=== PATIENT | female | born 1980 | race Caucasian/White ===

== ENCOUNTER → 2018-08-13 16:27 | Outpatient (CLI) | payer OTHER, SELFPAY | PROVIDERS: Family Provider Family Medicine; PCP Family Medicine; Visit Provider Physician Assistant | DX: N39.0 Urinary tract infection, site not specified (principal) | CPT/HCPCS: 87086 ==

== ENCOUNTER → 2018-09-06 10:44 | Outpatient (CLI) | payer OTHER, SELFPAY ==
--- NOTE | 2018-09-06 | DI.CT.S_ITS ---
PROCEDURE: CT ABDOMEN PELVIS WO/W CON INDICATIONS: RECURRENT UPPER URINARY TRACT INFECTIONS TECHNIQUE: Optional 5 mm thick noncontrast images acquired from the diaphragm to the symphysis pubis. After the administration of intravenous contrast, 5 mm thick images acquired from the diaphragm to the symphysis pubis after a 10-minute delay. 2 mm thick coronal and sagittal reformats were then performed of the kidneys and ureters. For radiation dose reduction, the following was used: automated exposure control, adjustment of mA and/or kV according to patient size. COMPARISON: None. FINDINGS: Image quality: Excellent. Lung bases: Bibasilar dependent atelectasis is seen posteriorly. No pleural effusion or pneumothorax Heart size is normal. Urinary system: Both kidneys are normal in size, without hydronephrosis or nephrolithiasis on pre-contrast images. No perinephric fat stranding. There is normal bilateral renal enhancement. Renal calyces appear normal in morphology when filled with contrast. Opacified portions of both ureters demonstrate normal caliber. Urinary bladder is partially distended and shows no obvious bladder wall abnormality. No calcified bladder stones. Other solid organs: Liver is normal in size and enhancement. Hepatic steatosis is seen. Gallbladder is within normal limits. Biliary system is non dilated. Pancreas enhances normally. Spleen is normal in size and enhancement. No adrenal nodules. Peritoneum and bowel: Bowel loops demonstrate normal wall thickness and caliber. No free fluid or air. Appendix is visualized and is within normal limits Nodes and vessels: No retroperitoneal or mesenteric adenopathy by size criteria. Aorta and inferior vena cava are normal in size. Abdominal wall: No ventral hernias. Pelvis: No pathologic free pelvic fluid. No inguinal hernias or adenopathy. Intrauterine device is noted in its normal central location. Bones: No suspicious bony lesions. No vertebral body compression fractures. IMPRESSION: 1. No renal stone or hydronephrosis. Normal appearing bilateral ureters. No gross abnormality is seen in partially distended urinary bladder. 2. Intrauterine device in place. 3. No bowel obstruction. No free fluid or free air. 4. Hepatic steatosis. Dictated by: Ricardo Guaman M.D. on 09/06/2018 at 11:49 Approved by: Ricardo Guaman M.D. on 09/06/2018 at 11:52
== END ==
PROVIDERS: Family Provider Family Medicine; PCP Family Medicine; Visit Provider Physician Assistant
DX: N39.0 Urinary tract infection, site not specified (principal); K76.0 Fatty (change of) liver, not elsewhere classified; Z97.5 Presence of (intrauterine) contraceptive device
CPT/HCPCS: 74178; Q9967

== ENCOUNTER → 2018-09-16 13:10 | Outpatient (CLI) | payer OTHER, SELFPAY ==
--- NOTE | 2018-09-16 13:13 | DI.US.S_ITS ---
LIMITED ULTRASOUND OF LEFT BREAST: 09/16/2018 CLINICAL: Focal left breast pain. Comparison is made to exam dated: 09/16/2018 [employer]. Real-time and Doppler ultrasound of the left breast outer aspect were performed. Jauregui scale images of the real-time examination were reviewed. Targeted ultrasound was performed in the region of the patient's reported focal pain in the outer left breast. No underlying breast mass or abnormality is identified. IMPRESSION: NEGATIVE 1) No ultrasound findings to explain patient's reported focal pain in the outer left breast. Recommend clinical follow-up for further evaluation and management of the patient's reported symptoms. 2) There is no sonographic evidence of malignancy in the imaged portions of the left breast. Return to annual screening mammography is recommended. The patient is advised to monitor her breasts and to return sooner for re-evaluation should she feel anything grow or change. This exam was interpreted at Station ID: [id number]. Electronically Signed By: Lion Sommer M.D. ecl/:09/16/2018 17:58:38 letter sent: Clinical Evaluation Ultrasound BI-RADS: 1 Negative
--- NOTE | 2018-09-16 13:13 | DI.MG.S_ITS ---
BILATERAL DIGITAL DIAGNOSTIC MAMMOGRAM 3D/2D: 09/16/2018 CLINICAL: Baseline exam. Left breast pain. No prior exams were available for comparison. The tissue of both breasts is heterogenously dense, which lowers the sensitivity of mammography. There is a square marker overlying the skin of the upper outer left breast at the site of the patient's reported focal pain. There is no underlying mammographic abnormality. There are circular mole markers overlying the breasts bilaterally. There are prominent bilateral axillary lymph nodes. No significant masses, calcifications, or other findings are seen in either breast. IMPRESSION: INCOMPLETE: NEEDS ADDITIONAL IMAGING EVALUATION No mammographic abnormality to correlate with the site of the patient's reported focal breast pain in the upper outer left breast. Targeted diagnostic ultrasound recommended for further evaluation, which will be performed immediately following this exam. This exam was interpreted at Station ID: [id number]. NOTE: For mammograms, a report in lay terms will be sent to the patient. Approximately 15% of breast malignancies will not be visualized mammographically. In the management of a palpable breast mass, a negative mammogram must not discourage biopsy of a clinically suspicious lesion. Electronically Signed By: Lion Sommer M.D. ecl/:09/16/2018 14:30:45 letter sent: Additional Imaging Needed ACR BI-RADS Category 0: Incomplete 3340F
== END ==
PROVIDERS: Family Provider Family Medicine; Visit Provider Internal Medicine
DX: R92.8 Other abnormal and inconclusive findings on diagnostic imaging of breast (principal); N64.4 Mastodynia
CPT/HCPCS: 76642; 77066; G0279

== ENCOUNTER → 2018-10-07 15:58 | Outpatient (CLI) | payer OTHER, SELFPAY ==
[2018-10-07 16:05] LABS: RBC Urine None Seen (0-5/HPF)
[2018-10-07 17:16] LABS: Appearance Urine UA CLEAR; Bilirubin Urine UA NEGATIVE (NEGATIVE); Color Urine UA YELLOW; Glucose Urine UA NEGATIVE (Negative); Ketones Urine UA NEGATIVE (NEGATIVE); Leukocyte Esterase Urine UA NEGATIVE (NEGATIVE); Nitrite Urine UA NEGATIVE (Negative); Occult Blood Urine UA NEGATIVE (Negative); Protein Urine UA NEGATIVE (Negative); Specific Gravity Urine UA >=1.030 (1.000-1.035); Urobilinogen Urine UA 0.2 E.U./dL (0.2); pH Urine UA 5.5 (4.5-8.0)
[2018-10-07 17:30] LABS: Squamous Epithelial Cell Urine 1-5 /HPF; WBC Urine 0-1/HPF (0-5/HPF)
[2018-10-07 17:31] LABS: Bacteria Urine Few (2-10); Culture Indicated Urine Cult Not Indicated
== END ==
PROVIDERS: Visit Provider Urology
DX: N39.0 Urinary tract infection, site not specified (principal)
CPT/HCPCS: 81001

== ENCOUNTER → 2019-01-20 16:10 | Outpatient (CLI) | payer OTHER, SELFPAY | PROVIDERS: Visit Provider Registered Nurse | DX: J02.9 Acute pharyngitis, unspecified (principal) | CPT/HCPCS: 87070; 87077 ==

== ENCOUNTER → 2019-05-26 10:34 | Outpatient (CLI) | payer OTHER, SELFPAY ==
[2019-05-26 12:34] LABS: Add Manual Diff / Slide Review NO; Basophils Absolute Auto 0 /uL (0-100); Basophils Percent Auto 0.6 % (0-2); Eosinophils Absolute Auto 100 /uL (0-450); Hemoglobin 14.4 g/dL (12.0-16.0); Lymphocytes Absolute Auto 2900 /uL (1100-4500); Lymphocytes Percent Auto 40.9 % (25-40); Mean Corpuscular HGB Conc 34.4 % (30-36); Mean Corpuscular Hemoglobin 30.2 PG (26-34); Monocytes Absolute Auto 500 /uL (0-900); Neutrophils Absolute Auto 3500 /uL (1500-7000); Neutrophils Percent Auto 49.5 % (50-75); Platelet Count 287 X10^3/uL (150-400); Red Blood Cell Count 4.77 X10^6/uL (4.0-5.2); Red Cell Distribution Width 14.1 % (11.6-14.8)
[2019-05-26 12:57] LABS: Alanine Aminotransferase 28 IU/L (9-52); Albumin Globulin Ratio 1.3 (1.0-2.8); Alkaline Phosphatase 66 U/L (38-126); Aspartate Aminotransferase 29 IU/L (14-36); Bilirubin Total 0.7 mg/dL (0.2-1.3); Blood Urea Nitrogen 12 mg/dL (7-17); Calcium 9.2 mg/dL (8.4-10.2); Carbon Dioxide 25 mmol/L (22-32); Chloride 105 mmol/L (98-107); Estimated Glomerular Filt Rate > 60.0 mL/min (>60); Glucose 84 mg/dL (70-100); HEMOLYSIS < 15 (0-50); Potassium 4.3 mmol/L (3.4-5.1); Sodium 138 mmol/L (137-145)
[2019-05-26 12:58] LABS: C-Reactive Protein Quant < 0.5 mg/dL (<1.0)
[2019-05-26 13:15] LABS: Erythrocyte Sedimentation Rate 3 MM/HR (0-20)
[2019-06-16 15:25] LABS: (tTG) Ab, IgA < 1
== END ==
PROVIDERS: PCP Registered Nurse; Visit Provider Registered Nurse
DX: K52.9 Noninfective gastroenteritis and colitis, unspecified (principal)
CPT/HCPCS: 36415; 80053; 82784; 83516; 85025; 85651; 86140; 86255

== ENCOUNTER 2019-06-10 09:47 | Emergency (ER) | payer OTHER, SELFPAY ==
[2019-06-10 09:59] VITALS: BP 123/74; PULSE 72; RESP 20; TEMP 36.7; O2SAT 95; BMI 41.5
--- NOTE | 2019-06-10 10:16 | ED_ITS ---
HPI - Skin/Abscess/Foreign Bdy General Chief complaint: Skin/Abscess/Foreign Body Stated complaint: Laceration on left breast Time Seen by Provider: 06/10/19 10:16 Source: patient, old records reviewed and other (Carrie Tracey) Mode of arrival: ambulatory Limitations: no limitations History of Present Illness HPI narrative: This is a 39-year-old female comes in with complaint of laceration on her left breast. She states last night she wanted to remove a tattoo that she had on her breast that was reminder of past relationship. She states she attempted to move her self. She states that it did bleed quite a bi t. She bandaged it and then thought it might be better this morning. When she woke up she realized that it was not better contacted her primary care provider who came in and felt that they were not be able to close it properly in the office and she was sent here. Patient denies any attempt at self-harm, she denies any suicidal thoughts or thoughts of hurting others. She has had some history of depression and anxiety. She states that she just wanted it removed. She states that she has looked into tattoo removal and it is quite expensive. Her tetanus was updated last in 2013. She denies any other medical issues, denies any other prior surgeries. No allergies to medications. Patient states they have recently adjusted her medications. Related Data Home Medications Medication Instructions Recorded Confirmed levonorgestrel [Mirena] 52 mg INTRAU #0 09/26/16 06/10/19 Previous Rx's Medication Instructions Recorded acyclovir 800 mg PO SEE INSTRUCTIONS #50 tab 09/17/16 eletriptan [Relpax] 20 mg PO PRN PRN #10 tab 07/17/17 fluoxetine 20 mg capsule 20 mg PO DAILY #90 cap 03/17/19 hydroxyzine HCl 25 mg tablet See Rx Instructions PO Q6H PRN #30 04/15/19 tab ondansetron 4 mg disintegrating See Rx Instructions PO Q6-8H PRN 05/24/19 tablet #45 tab metoclopramide HCl 5 mg 10 mg PO TID PRN #60 tab 05/26/19 disintegrating tablet ranitidine HCl 150 mg tablet 150 mg PO BID #60 tab 05/26/19 cephalexin [Keflex] 500 mg PO QID #20 cap 06/10/19 Allergies Allergy/AdvReac Type Severity Reaction Status Date / Time No Known Drug Allergies Allergy Unverified 06/10/19 09:12 Review of Systems Review of Systems ROS Unobtainable: All systems reviewed & are unremarkable except as noted in HPI and below Cardiovascular Cardiovascular: Reports chest pain (Pain in left breast at laceration) Integumentary/Breasts Skin/Breast: Denies erythema, Denies rash and Reports wounds Psychiatric Psychiatric: Reports as per HPI, Reports anxiety, Reports depression, Denies homicidal ideation and Denies suicidal ideation [facility] Medical History Anxiety (Chronic) Depression (Chronic) Inappropriate sinus tachycardia (Chronic 2004) Surgical History Status post left foot surgery (Resolved) Status post loop electrosurgical excision procedure (LEEP) of cervix (Resolved 10/17/16) Family History Father Age: 69 Hypertension Mother No problems noted. Social History Smoking Status: Never smoker alcohol intake: current (rarely) substance use type: does not use Social History Smoking Status: Never smoker alcohol intake: current (rarely) substance use type: does not use Exam Narrative Exam Narrative: GENERAL: Alert and oriented x three, obese female in mild distress. HEENT: Head normocephalic, atraumatic, EOMI, pupils reactive, face symmetric, moist mucous membranes NECK: Supple, full range of motion CARDIOVASCULAR: Regular rate and rhythm without murmurs, rubs or gallops. RESPIRATORY: Breath sounds equal bilaterally, no wheezes rales or rhonchi. ABDOMEN: Soft, nontender. Normoactive bowel sounds all 4 quadrants. No guarding or rebound, rigidity, no mass EXTREMITIES: Normal range of motion, no clubbing or edema. Neurovascularly intact NEUROLOGICAL: Cranial nerves II through XII grossly intact. Moving all extremities. Normal gait. SKIN: Warm, dry, no petechiae, no rashes. Patient has a large 9 cm laceration on her left breast at the 11:00 a.m. to 3 o'clock position superior to the nipple by several cm. The wound is deep into the subcutaneous tissue PSYCH: Denies any intent for self-harm, denies any suicidal ideation or intention, denies any homicidal ideation or intention. Patient states she does have a history of depression and anxiety. Denies any other symptoms. Initial Vital Signs Initial Vital Signs: Vital Signs Temperature 98.0 F 06/10/19 09:59 Pulse Rate 72 06/10/19 09:59 Respiratory Rate 20 06/10/19 09:59 Blood Pressure 123/74 06/10/19 09:59 Pulse Oximetry 95 06/10/19 09:59 Procedures Laceration Repair Laceration 1: Site: chest (Left breast) Side (If applicable): left Size (cm): 9 Description: irregular Depth: simple, single layer Local Anesthetic: lidocaine 1% Amount of anesthesia used (mL): 15 Pre-repair: wound explored, irrigated extensively and deep structures intact (laceration into subcuteanous layer but superficially) Skin layer closed with: nylon Size (cm): 4-0 Number of sutures: 11 Technique: simple, interrupted Course Orders Ordered: Discontinued Medications Bacitracin (Bacitracin) 1 applic TOP NOW ONE Stop: 06/10/19 11:21 Last Admin: 06/10/19 11:25 Dose: 1 applic Documented by: TRESA Diphtheria/Tetanus/Acell Pertussis (Adacel) 0.5 ml IM .ONCE ONE Stop: 06/10/19 11:21 Last Admin: 06/10/19 11:25 Dose: 0.5 ml Documented by: TRESA Lidocaine/Sodium Bicarbonate (Buffered Lidocaine 10 Ml Syr) 10 ml INJ NOW ONE Stop: 06/10/19 10:33 Last Admin: 06/10/19 11:15 Dose: 10 ml Documented by: TRESA Lidocaine/Sodium Bicarbonate (Buffered Lidocaine 10 Ml Syr) 10 ml INJ NOW ONE Stop: 06/10/19 10:33 Last Admin: 06/10/19 11:15 Dose: 10 ml Documented by: TRESA Vital Signs Vital signs: Vital Signs - 8 hr 06/10/19 11:33 Pulse Rate 62 Respiratory Rate 17 Blood Pressure [Right Arm] 116/49 L Pulse Oximetry 97 MDM - Skin/Abscess/Foreign Bdy MDM Narrative Medical decision making narrative: Patient tolerated procedure well. She has very minimal ooze. We discussed she will likely have scarring. We did discuss that she could follow up with a breast surgeon in the future if she would like to. Patient's laceration occurred at while doing tattoo removal herself. This was last night so I would start her on antibiotics, she was irrigated extensively and we discussed signs and symptoms to watch for for infection. We did discuss her reasoning behind she denies any intent to harm herself, she denies any suicidal thoughts suggest states that she really wanted attached to removed. She states it was not the best decision she has ever made. Patient does have follow-up with pcp and with the behavioral department. We discussed s utures need to come out in 7-10 days. Discharge Plan Departure Patient Disposition: Home Clinical Impression: Laceration of breast Qualifiers: Encounter type: initial encounter Laterality: left Qualified Code(s): S21.012A - Laceration without foreign body of left breast, initial encounter Discharge Date/Time: 06/10/19 11:45 Instructions: DI for Laceration Repair -- Simple Activity Restrictions/Additional Instructions: Follow-up with your schedule appointment with your primary care provider for suture removal. You may take ibuprofen up to 800 mg every 8 hours as needed for pain and or Tylenol up to a 1000 mg every 8 hours as needed for pain. Start antibiotics today, take them until they are completely gone. Your prescription was sent to [facility] in [place] I would recommend wearing a supportive bra off until your skin has healed or while you are sleeping Make sure to keep the sutures covered so they do not rub or irritate against your clothes. Wound Care: Keep wound(s) clean and dry. Wash twice daily with soap and water only. Do not use over the counter products (alcohol or peroxide)on the wounds unless instructed by a physician, you may apply bacitracin or triple antibiotic oint ment to the affected area daily. If wound condition worsens (increased/expanding redness, developing fluid blisters, or worsening pain), either contact your doctor for an urgent re- assessment , or return to the Emergency Department. Return to the ED, urgent care, or vist a primary care doctor for removal or suture or yin in 7-10 days. Return if fever greater than 100.4 Fahrenheit, increased swelling, increasing pain or worsening symptoms such as increased discharge or spreading redness. New chest pain, shortness of breath, persistent nausea or vomiting or other new or concerning symptoms. Prescriptions: New cephalexin [Keflex] 500 mg capsule 500 mg PO QID Qty: 20 RF: 0 No Action acyclovir 800 MG tablet 800 mg PO SEE INSTRUCTIONS Qty: 50 RF: 3 levonorgestrel [Mirena] 1 EACH intrauterine device 52 mg INTRAU Qty: 0 RF: 0 eletriptan [Relpax] 20 MG tablet 20 mg PO PRN PRNQty: 10 RF: 3 fluoxetine 20 mg capsule 20 mg PO DAILY Qty: 90 RF: 0 hydroxyzine HCl 25 mg tablet See Rx Instructions PO Q6H PRN (Reason: anxiety) Qty: 30 RF: 0 ondansetron 4 mg tablet,disintegrating See Rx Instructions PO Q6-8H PRN (Reason: nausea and vomiting) Qty: 45 RF: 0 ranitidine HCl 150 mg tablet 150 mg PO BID Qty: 60 RF: 0 metoclopramide HCl 5 mg tablet,disintegrating 10 mg PO TID PRN (Reason: nausea and vomiting) Qty: 60 RF: 0 Referrals: Carrie Hayden ARNP [Primary Care Provider] -
[2019-06-10] MEDS: LIDO 1%/SOD BICARB 8.4% (10ML) 10 ML SYRINGE INJ ×2 (11:15)
[2019-06-10] MEDS: TET,DIPH,PERTUSS(ACELL),VAC/PF 0.5 ML SYRINGE IM (11:25)
[2019-06-10] MEDS: BACITRACIN OINT 0.9 GM PCKT 1 APPLIC TOP (11:25)
[2019-06-10 11:33] VITALS: BP 116/49; PULSE 62; RESP 17; O2SAT 97
== END 2019-06-10 11:45 | disposition home or self-care (01) ==
PROVIDERS: Emergency Provider Emergency Medicine; PCP Registered Nurse
DX: S21.012A Laceration without foreign body of left breast, initial encounter (principal); Z23 Encounter for immunization
CPT/HCPCS: 12004; 90471; 99282; 99283; 90715

== ENCOUNTER → 2020-03-23 11:57 | Outpatient (CLI) | payer OTHER, SELFPAY | PROVIDERS: PCP Registered Nurse; Visit Provider Nurse Practitioner Family | DX: N89.8 Other specified noninflammatory disorders of vagina (principal) | CPT/HCPCS: 87210 ==

== ENCOUNTER → 2020-07-06 07:35 | Outpatient (CLI) | payer OTHER, SELFPAY ==
--- NOTE | 2020-07-06 07:36 | DI.US.S_ITS ---
PROCEDURE: US PELVIC COMPLETE INDICATIONS: abnormal bleeding, IUD strings not visible TECHNIQUE: Real-time scanning was performed of the pelvic organs, with image documentation. Additional endovaginal scanning was necessary due to incomplete visualization of the adnexal and endometrial structures by transabdominal scanning. COMPARISON: [facility], CT, CT ABDOMEN PELVIS WO/W CON, 09/06/2018, 10:48. [facility], US, PELVIC COMPLETE, 06/13/2015, 0:30. FINDINGS: Transabdominal scanning: Limited scanning through the kidneys shows no hydronephrosis. No pathologic free abdominal or pelvic fluid. Endovaginal scanning: Uterus: Uterus is normal in size at 11.8 x 7.5 x 8.8 cm. The endometrium measures 12 mm in combined thickness. Incidental note is made of nabothian cysts. Along the mid uterus, there is a submucosal fibroid seen that measures 6.2 x 5 x 6.3 cm. The IUD is seen within the lower uterine segment, yet is not seen at the fundus of the uterus. Ovaries: The right ovary measures 3.7 x 1.9 x 2.5 cm. The left ovary measures 4.5 x 4.1 x 4.3 cm and demonstrates a prominent simple appearing cyst that measures 4 x 3.4 x 3.5 cm. . The ovaries otherwise have a normal sonographic appearance. No adnexal masses are seen. IMPRESSION: The IUD is seen within the lower uterine segment, and is not seen at the fundus. The IUD is regarded to have shifted since the prior study. Please correlate with interval history. There is a 6.2 cm fibroid seen. A 4 cm left ovarian cyst is seen. In a patient of this age, this is most likely a benign, functional cyst. At clinical discretion, a followup pelvic ultrasound is suggested in 6 weeks to assure resolution/ improvement. Dictated by: Santiago Christie M.D. on 07/06/2020 at 8:30 Approved by: Santiago Christie M.D. on 07/06/2020 at 8:33
== END ==
PROVIDERS: PCP Family Medicine; Referring Provider Family Medicine; Visit Provider Nurse Practitioner Family
DX: N93.9 Abnormal uterine and vaginal bleeding, unspecified (principal); T83.32XA Displacement of intrauterine contraceptive device, initial encounter; D25.0 Submucous leiomyoma of uterus; N83.202 Unspecified ovarian cyst, left side
CPT/HCPCS: 76856

== ENCOUNTER → 2020-08-16 12:13 | Outpatient (CLI) | payer OTHER, SELFPAY ==
--- NOTE | 2020-08-16 12:15 | DI.US.S_ITS ---
PROCEDURE: US PELVIC COMPLETE INDICATIONS: abnorma pelvic US, confirming if changes happening or not TECHNIQUE: Real-time scanning was performed of the pelvic organs, with image documentation. Additional endovaginal scanning was necessary due to incomplete visualization of the adnexal and endometrial structures by transabdominal scanning. COMPARISON: [facility], US, US PELVIC COMPLETE, 07/06/2020, 8:09. FINDINGS: Transabdominal scanning: Limited scanning through the kidneys shows no hydronephrosis. No pathologic free abdominal or pelvic fluid. Endovaginal scanning: Uterus: The uterus is enlarged, measuring 16.4 x 8.6 by 7.5 cm cm. The endometrium measures 6 mm in combined thickness. The IUD has been replaced. Is relatively poorly seen, secondary to the overlying fibroids. However, it is believed to be properly located. There is a left-sided intramural fibroid seen that measures 6.2 x 5 x 5.3 cm. Ovaries: The right ovary measures 5.1 x 2.2 x 3 cm and demonstrates a simple cyst that measures up to 3.4 cm. The left ovary measures 4.1 x 2.5 x 3.4 cm, with the largest cyst measuring up to 3.3 cm. No adnexal masses can be seen on either side. IMPRESSION: New IUD, which is believed to be properly located, although poorly seen, secondary to the 6.2 cm fibroid overlying it. Enlarged uterus. Bilateral simple appearing ovarian cysts are seen. At clinical discretion, a followup pelvic ultrasound is suggested in 6 weeks to assure resolution/ improvement. Dictated by: Santiago Christie M.D. on 08/16/2020 at 13:32 Approved by: Santiago Christie M.D. on 08/16/2020 at 13:35
== END ==
PROVIDERS: PCP Family Medicine; Referring Provider Family Medicine; Visit Provider Family Medicine
DX: D25.1 Intramural leiomyoma of uterus (principal); N85.2 Hypertrophy of uterus; N83.292 Other ovarian cyst, left side; N83.291 Other ovarian cyst, right side; N93.9 Abnormal uterine and vaginal bleeding, unspecified; R93.89 Abnormal findings on diagnostic imaging of other specified body structures; Z97.5 Presence of (intrauterine) contraceptive device
CPT/HCPCS: 76856

== ENCOUNTER → 2020-10-19 16:27 | Outpatient (CLI) | payer OTHER, SELFPAY ==
[2020-10-19] MEDS: COVID-19 VACC(MODERNA-1)/PF 100 MCG/0.5 ML VIAL IM (16:33)
== END ==
PROVIDERS: PCP Family Medicine; Visit Provider Internal Medicine
DX: Z23 Encounter for immunization (principal)
CPT/HCPCS: 0011A; 91301

== ENCOUNTER → 2020-11-16 16:27 | Outpatient (CLI) | payer OTHER, SELFPAY ==
[2020-11-16] MEDS: COVID-19 VACC #2, MRNA(MOD) 100 MCG/0.5 ML VIAL IM (16:33)
== END ==
PROVIDERS: PCP Family Medicine; Visit Provider Internal Medicine
DX: Z23 Encounter for immunization (principal)
CPT/HCPCS: 0012A; 91301

== ENCOUNTER → 2021-03-11 10:26 | Outpatient (CLI) | payer OTHER, SELFPAY ==
[2021-03-11 11:07] LABS: Add Manual Diff / Slide Review NO; Basophils Absolute Auto 100 /uL (0-100); Basophils Percent Auto 0.7 % (0-2); Eosinophils Absolute Auto 100 /uL (0-450); Eosinophils Percent Auto 1.7 % (2-4); Hematocrit 44.2 % (36-46); Lymphocytes Absolute Auto 2800 /uL (1100-4500); Lymphocytes Percent Auto 35.4 % (25-40); Mean Corpuscular Hemoglobin 31.8 PG (26-34); Mean Corpuscular Volume 93.7 fL (80-100); Monocytes Absolute Auto 500 /uL (0-900); Neutrophils Absolute Auto 4500 /uL (1500-7000); Neutrophils Percent Auto 56.2 % (50-75); Platelet Count 268 X10^3/uL (150-400); Red Blood Cell Count 4.72 X10^6/uL (4.0-5.2); Red Cell Distribution Width 14.3 % (11.6-14.8); White Blood Cell Count 7.9 X10^3/uL (4.5-11.0)
[2021-03-11 11:20] LABS: Appearance Urine UA SL CLOUDY; Bilirubin Urine UA NEGATIVE (NEGATIVE); Color Urine UA YELLOW; Glucose Urine UA NEGATIVE (Negative); Ketones Urine UA NEGATIVE (NEGATIVE); Leukocyte Esterase Urine UA 1+ (NEGATIVE); Nitrite Urine UA POSITIVE (Negative); Occult Blood Urine UA 3+ (Negative); Protein Urine UA NEGATIVE (Negative); Specific Gravity Urine UA 1.025 (1.000-1.035); Urobilinogen Urine UA 0.2 E.U./dL (0.2)
[2021-03-11 11:24] LABS: RBC Urine 10-30/HPF (0-5/HPF)
[2021-03-11 11:25] LABS: Bacteria Urine Many (>30); Culture Indicated Urine Cult Not Indicated; Squamous Epithelial Cell Urine >30 /HPF (0-5/HPF); WBC Urine 1-5/HPF (0-5/HPF)
[2021-03-11 11:28] LABS: Alanine Aminotransferase 14 IU/L (<35); Albumin 4.1 g/dL (3.5-5.0); Albumin Globulin Ratio 1.5 (1.0-2.8); Alkaline Phosphatase 62 U/L (38-126); Aspartate Aminotransferase 22 IU/L (14-36); Bilirubin Total 0.7 mg/dL (0.2-1.3); Blood Urea Nitrogen 13 mg/dL (7-17); Calcium 10.1 mg/dL (8.4-10.2); Carbon Dioxide 23 mmol/L (22-32); Chloride 107 mmol/L (98-107); Estimated Glomerular Filt Rate > 60.0 mL/min (>60); Globulin 2.8 g/dL (1.7-4.1); Glucose 90 mg/dL (70-100); HEMOLYSIS < 15 (0-50); Sodium 135 mmol/L (137-145); Total Protein 6.9 g/dL (6.3-8.2)
[2021-03-11 11:33] LABS: Erythrocyte Sedimentation Rate 1 MM/HR (0-20)
[2021-03-11 12:54] LABS: Urine N gonorrhoeae NOT DETECTED
[2021-03-11 12:55] LABS: Urine Chlamydia NOT DETECTED
[2021-03-11 16:07] LABS: Hepatitis B Surface Antigen NEGATIVE s/c (NEGATIVE)
[2021-03-11 16:29] LABS: HIV 1 & 2 Ab/Ag 4th Gen Combo NEGATIVE (NEGATIVE); Hep C Virus Ab w/Reflex Quant NEGATIVE s/c (NEGATIVE)
[2021-03-12 05:11] LABS: HSV 2 IGG AB < 0.91 index (0.00-0.90)
[2021-03-12 06:18] LABS: RPR Screen Non Reactive (Non Reactive)
[2021-03-12 19:10] LABS: HSV I/II IgM <0.91 Ratio (0.00-0.90)
== END ==
PROVIDERS: PCP Registered Nurse; Referring Provider Registered Nurse; Visit Provider Registered Nurse
DX: Z11.3 Encounter for screening for infections with a predominantly sexual mode of transmission; R10.2 Pelvic and perineal pain; Z97.5 Presence of (intrauterine) contraceptive device; N93.9 Abnormal uterine and vaginal bleeding, unspecified; N89.8 Other specified noninflammatory disorders of vagina
CPT/HCPCS: 36415; 80053; 81003; 81015; 85025; 85651; 86592; 86694; 86695; 86696; 86803; 87210; 87340; 87389; 87491; 87591

== ENCOUNTER → 2021-03-11 10:26 | Outpatient (CLI) | payer OTHER, SELFPAY | PROVIDERS: PCP Family Medicine; Visit Provider Registered Nurse | DX: N89.8 Other specified noninflammatory disorders of vagina (principal) | CPT/HCPCS: 87210 ==

== ENCOUNTER → 2021-03-18 10:24 | Outpatient (CLI) | payer OTHER, SELFPAY ==
--- NOTE | 2021-03-18 10:25 | DI.US.S_ITS ---
PROCEDURE: US PELVIC COMPLETE INDICATIONS: pelvic pain TECHNIQUE: Real-time scanning was performed of the pelvic organs, with image documentation. Additional endovaginal scanning was necessary due to incomplete visualization of the adnexal and endometrial structures by transabdominal scanning. COMPARISON: [facility], , US PELVIC COMPLETE, 08/16/2020, 12:30. FINDINGS: Uterus: Uterus is enlarged measuring 11.9 x 8.58.1 cm. Large left/midline anterior intramural fibroid measuring 7.0 x 6.6 x 5.5 cm. IUD is noted although sonographically difficult to visualize due to fibroid. It appears displaced to the right, although the endometrial margins are not well seen. Ovaries: Right ovary measures 3.8 x 2.9 x 3.0 cm. The left ovary measures 4.8 x 2.4 x 2.5 cm. Other: No pathologic free abdominal or pelvic fluid. IMPRESSION: Suboptimal evaluation secondary to redemonstrated large uterine fibroid. Endometrial cavity and IUD subsequently sonographically difficult to visualize. Previous ovarian cysts are not seen currently however both ovaries are also not well evaluated sonographically (seen transabdominally only). Dictated by: David Day M.D. on 03/18/2021 at 15:24 Approved by: David Day M.D. on 03/18/2021 at 15:30
== END ==
PROVIDERS: PCP Registered Nurse; Referring Provider Registered Nurse; Visit Provider Registered Nurse
DX: R10.2 Pelvic and perineal pain (principal); D25.1 Intramural leiomyoma of uterus; Z97.5 Presence of (intrauterine) contraceptive device
CPT/HCPCS: 76830; 76856

== ENCOUNTER → 2022-09-16 13:06 | Outpatient (CLI) | payer OTHER, SELFPAY ==
--- NOTE | 2022-09-16 | DI.MG.S_ITS ---
BILATERAL DIGITAL SCREENING MAMMOGRAM 3D/2D WITH CAD: 09/16/2022 CLINICAL: Routine screening. Comparison is made to exam dated: 09/16/2018 mammogram - [facility]. There are scattered areas of fibroglandular density in both breasts (category b / 25%-50% glandular tissue). Current study was also evaluated with a Computer Aided Detection (CAD) system. No significant masses, calcifications, or other findings are seen in either breast. There has been no significant interval change. IMPRESSION: NEGATIVE There is no mammographic evidence of malignancy. A 1 year screening mammogram is recommended. Based on the Tyrer Cuzick model (a risk assessment model) the patient's lifetime risk is 7.5% and her 10 year risk is 1.2%. According to the ACR, ACS, and NCCN guidelines, an annual breast MRI exam along with mammogram is recommended if the patient's lifetime risk is 20% or greater. This exam was interpreted at Station ID: [id number]. NOTE: For mammograms, a report in lay terms will be sent to the patient. Approximately 15% of breast malignancies will not be visualized mammographically. In the management of a palpable breast mass, a negative mammogram must not discourage biopsy of a clinically suspicious lesion. Electronically Signed By: Wil ariza/wilberto:09/16/2022 14:39:01 letter sent: Normal Exam ACR BI-RADS Category 1: Negative 3341F
== END ==
PROVIDERS: PCP Family Medicine; Referring Provider Family Medicine; Visit Provider Family Medicine
DX: Z12.31 Encounter for screening mammogram for malignant neoplasm of breast (principal)
CPT/HCPCS: 77063; 77067

== ENCOUNTER → 2023-10-03 09:15 | Outpatient (CLI) | payer OTHER, SELFPAY ==
--- NOTE | 2023-10-03 | DI.MG.S_ITS ---
BILATERAL DIGITAL SCREENING MAMMOGRAM 3D/2D WITH CAD: 10/03/2023 CLINICAL: Routine screening. Comparison is made to exams dated: 09/16/2022 mammogram and 09/16/2018 mammogram - [facility]. There are scattered areas of fibroglandular density in both breasts (category b / 25%-50% glandular tissue). Current study was also evaluated with a Computer Aided Detection (CAD) system. No significant masses, calcifications, or other findings are seen in either breast. There has been no significant interval change. IMPRESSION: NEGATIVE There is no mammographic evidence of malignancy. A 1 year screening mammogram is recommended. Based on the Tyrer Cuzick model (a risk assessment model) the patient's lifetime risk is 7.5% and her 10 year risk is 1.3%. According to the ACR, ACS, and NCCN guidelines, an annual breast MRI exam along with mammogram is recommended if the patient's lifetime risk is 20% or greater. This exam was interpreted at Station ID: [id number]. NOTE: For mammograms, a report in lay terms will be sent to the patient. Approximately 15% of breast malignancies will not be visualized mammographically. In the management of a palpable breast mass, a negative mammogram must not discourage biopsy of a clinically suspicious lesion. Electronically Signed By: Shay hill/wilberto:10/06/2023 07:47:52 letter sent: Normal Exam ACR BI-RADS Category 1: Negative 3341F
== END ==
LOC: MAMMO 09:15
PROVIDERS: PCP Registered Nurse; Referring Provider Registered Nurse; Visit Provider Registered Nurse
DX: Z12.31 Encounter for screening mammogram for malignant neoplasm of breast (principal)
CPT/HCPCS: 77063; 77067

== ENCOUNTER 2024-05-02 11:58 | Day surgery (SDC) | payer OTHER, SELFPAY ==
[2024-04-28 08:25] VITALS: BMI 41.8
[2024-05-02] VITALS (7 sets, daily range): BP systolic 118–141; BP diastolic 74–88; PULSE 80–101; RESP 11–20; TEMP 36.1–36.5; O2SAT 96–99; BMI 41.0
--- NOTE | 2024-05-02 | PATH_ITS ---
[facility] Accession Number: [id number] No. of containers..01 Tissue . 01 Material submitted: . endometrium - ENDOMETRIAL CURETTINGS . 01 Diagnosis: ENDOMETRIAL CURETTINGS: Portions of proliferative and disordered proliferative endometrium; negative for endometrioid intraepithelial neoplasia or malignancy. Portion of metaplastic squamous mucosa; negative for significant atypia. MRV 05/05/2024 0822 Local . 01 Electronically signed: . Tatiana Lucero MD, Pathologist NPI- [id number] . 01 Gross description: . Received in formalin with two patient identifiers and endometrial curettings, are multiple boucher soft tissue fragments admixed with mucohemorrhagic material aggregating to 3.2 x 3.0 x 0.3 cm. Filtered and submitted in A1. ([id number]) /MRV 05/03/2024 1659 Local . 01 Pathologist provided ICD-10: N85.00 . 01 CPT . 189612 Specimen Comment: A courtesy copy of this report has been sent to [facility] Pathology Performed at: [address] [address], [place], [place] [id number] MD Norman Wagner MD Phone: [phone]
[2024-05-02] MEDS: LACTATED RINGERS 1,000 ML 42 ML IV (12:43)
[2024-05-02] MEDS: SCOPOLAMINE 1 PATCH TOP (12:44)
--- NOTE | 2024-05-02 12:57 | PM.PREOP ---
Pre-operative Note Interval Note History & Physical reviewed/Exam performed by Physician: Yes Changes to H&P: No H&P completed within 30 days and has changed as indicated here:: 04/18/24 ASA Class (for procedural sedation): II
--- NOTE | 2024-05-02 13:28 | SUR.OPER ---
Lithotomy on padded OR bed, head on pillow, arms secured on padded arm boards at <90 degrees abduction. Legs secured in padded yellow fins stirrups.
[2024-05-02] MEDS: ACETAMINOPHEN IV 1,000 MG/100 ML VIAL 400 MG IV (13:52)
--- NOTE | 2024-05-02 14:35 | P.OP_ITS ---
Operative Date/Time/Diagnoses Date of procedure: 05/02/24 Time of procedure: 14:35 Pre-op diagnosis: AUB Post-op diagnosis: same Procedure & Clinicians Procedure: hysteroscopy, D&C Same procedure as scheduled: Yes Indications: Abnormal uterine bleeding Surgeon: Chichi Harvey Click Yes if Unassisted: Yes Anesthesia Type: General Operative Notes Findings: normal external female genitalia, perineum, anus, vagina and cervix intrauterine cavity with noted anterior L lateral fibroid with incursion <10% into endometrial cavity, mass effect of fundal fibroid without incursion into the endometrial cavity proliferative appearing endometrium Closure Type: not applicable Specimen(s): other (endometrial currettings ) Estimated Blood Loss (mL): 10 Procedure in detail: Pt was taken to the operating room, transferred to OR table and anesthesia was induced with placement of LMA.? Pt had her legs placed in Leandro stirrups and an exam under anesthesia was performed. The patient was prepped and draped in a sterile fashion.? A time out was performed. ?The bladder was emptied via straight catheter in sterile fashion.? A sterile speculum was inserted into the vagina.? The cervix was visualized and grasped anteriorly using a single tooth tenaculum.? The uterus sounded to 11cm and the cervical os was serially dilated using Nixon dilators up to 17f to allow for passage of the hysteroscope.? The 5mm 0 degree hysteroscope was then inserted into the uterus with findings as n oted.? The hysteroscope was removed and the uterus was sharply curetted until a gritty texture was noted throughout.? The tenaculum was removed and hemostasis was noted at insertion sites.? The speculum was removed and hemostasis was again noted to be excellent.? The patient then had her legs taken out of stirrups.? The patient tolerated the procedure well and without difficulty.? The patient was awakened from anesthesia and taken to PACU in stable condition. Complications: none Post-operative Condition: stable Disposition: PACU Plan for aftercare: home, routine postoperative f/u in office as scheduled
== END 2024-05-02 15:20 | disposition home or self-care (01) ==
PROVIDERS: PCP Registered Nurse; Referring Provider Obstetrics & Gynecology; Visit Provider Obstetrics & Gynecology
PROC: 0UDB8ZZ Extraction of Endometrium, Via Natural or Artificial Opening Endoscopic (ICD-10-PCS; CPT 58558; principal; 2024-05-02 13:30)
DX: N93.9 Abnormal uterine and vaginal bleeding, unspecified (principal)
CPT/HCPCS: 58558; 81025; J0136; J1100; J2250; J2405; J2704; J3010